=== PATIENT | female | born 1970 | race African-American/Black ===

== ENCOUNTER 2017-02-10 13:24 | Emergency (ER) | payer OTHER ==
[~2017-02-10] VITALS: Ht 152.4 cm; Wt 79.5 kg
[2017-02-10 13:26] VITALS: TEMP 98
[2017-02-10] MEDS ORDERED: FLEXERIL 1010 MG/TAB PO (15:21)
[2017-02-10] MEDS ORDERED: NORCO 325 MG-51 TAB PO (15:21)
[2017-02-10 15:38] VITALS: BP 124/89; PULSE 74
== END 2017-02-10 15:38 | disposition home or self-care (01) ==
LOC: COL.ER 13:24
DX: S13.4XXA Sprain of ligaments of cervical spine, initial encounter (principal); F17.210 Nicotine dependence, cigarettes, uncomplicated; Z90.710 Acquired absence of both cervix and uterus; V43.62XA Car passenger injured in collision with other type car in traffic accident, initial encounter
CPT/HCPCS: J2270; J2405